=== PATIENT | female | born 1990 | race Caucasian/White ===

== ENCOUNTER 2017-01-06 10:46 | Inpatient (IN) | payer MEDICAID ==
[~2017-01-06] VITALS: Ht 152.4 cm; Wt 68.6 kg
[~2017-01-06 10:46] MED LIST: ACET500C5 PO; AMO500 PO; BEN25 PO; CALC600T5 PO; FERR159T PO; OXYTOCIN 30 UNITS/LR 500 ML BAG IV ONE; PREN-46 PO
[2017-01-06 10:59] VITALS: Ht 152.4 cm; Wt 68.6 kg
[2017-01-06] MEDS ORDERED: LACTATED RINGER'S 1,000 ML IV SCH (11:00)
[2017-01-06] MEDS ORDERED: OXYTOCIN 30 UNITS/LR 500 ML IV SCH (11:00)
[2017-01-06] MEDS ORDERED: MISOPROSTOL 200 MCG TAB PR PRN ×2 (11:00→18:00)
[2017-01-06] MEDS ORDERED: METHYLERGONOVINE 0.2 MG INJ IM PRN ×2 (11:00→18:00)
[2017-01-06] MEDS ORDERED: CARBOPROST 250 MCG INJ IM PRN ×2 (11:00→18:00)
[2017-01-06] MEDS ORDERED: OXYTOCIN 30 UNITS/LR 500 ML IV PRN ×2 (11:00→18:00)
[2017-01-06 11:14] VITALS: BP 102/62; PULSE 84; RESP 20
[2017-01-06 11:28] LABS: BASOPHILS % 0.3 % (0.0-2.0); EOSINOPHILS % 0.3 % (0.0-7.0); HEMATOCRIT 40.3 % (37.0-47.0); HEMOGLOBIN 13.8 g/dl (12.0-16.0); LYMPHOCYTES # 1.7 10^3/ul (0.8-2.9); LYMPHOCYTES % 20.3 % (15.0-51.0); MEAN CORPUSCULAR HEMOGLOBIN 31.3 pg (29.0-33.0); MEAN CORPUSCULAR HGB CONC 34.2 g/dl (32.0-37.0); MEAN CORPUSCULAR VOLUME 91.5 fl (82.0-101.0); MEAN PLATELET VOLUME 9.3 fl (7.4-10.4); MONOCYTE # 0.5 10^3/ul (0.3-0.9); MONOCYTES % 6.4 % (0.0-11.0); NEUTROPHIL # 6.2 10^3/ul (1.6-7.5); NEUTROPHILS % 72.7 % (39.0-77.0); PLATELET COUNT 150 10^3/UL (140-440); RED BLOOD COUNT 4.41 10^6/ul (4.20-5.40); UNCORRECTED WBC 8.5 10^3/ul (4.8-10.8); WHITE BLOOD COUNT 8.5 10^3/ul (4.8-10.8)
[2017-01-06] MEDS ORDERED: AMPICILLIN 2 GM/NS (PMX) 100 ML IVPB ONE (11:30)
[2017-01-06 11:33] LABS: CONDITION 1
[2017-01-06 11:43] LABS: INR 0.94; PROTIME 12.6 Sec (12.2-14.2)
[2017-01-06 11:44] LABS: PARTIAL THROMBOPLASTIN TIME 27.5 Sec (25.0-35.0)
[2017-01-06] MEDS ORDERED: FENTAnyl 50 MCG/ML VIAL ONE (12:53)
[2017-01-06] MEDS ORDERED: morphine SULFATE/PF (10 MG/10 ML) INJ ONE (12:53)
[2017-01-06] MEDS ORDERED: EPHEDrine SULFATE 50 MG/5 ML SYG ONE (12:58)
[2017-01-06] MEDS: CEFAZOLIN 2 GM/50 ML (PMX) 50 ML IVPB SCH ×3 (13:50→22:08)
--- NOTE | 2017-01-06 14:56 | HP ---
Date/Time of Note Date/Time of Note DATE: 01/06/17 TIME: 14:52 OB - History Hx of Present Free Text/Dictation admitted for repeat C/S at term Estimated Due Date: Jan 13, 2017 : 2 Para: 1 Care: Good Care Ultrasounds: Normal mid trimester US Obstetrical Complications: None Medical Complications: None, Other (+ GBS ) Past Family/Social History * Past Medical, Surgical, Family and Obstetric Histories reviewed from chart. Blood Type: A+ Rubella: immune RPR/VDRL: Negative GBS Status: Positive HBsAG: Negative OB Admission Exam Vital Signs Vital Signs Vital Signs Date Time Temp Pulse Resp B/P Pulse Ox O2 Delivery O2 Flow Rate FiO2 01/06/17 11:14 97.8 84 20 102/62 Room Air Physical Exam HEENT: WNL Heart: Rhythm Normal Lungs: Clear, Equal Abdomen: WNL Extremities: Normal Reflexes: Normal Cervical Dilatation: None Effacement: 0% Station: -3 Membranes: Intact Heart Rate: 140's Accelerations: Accelerations Present Decelerations: Early Decelerations Varibility: Moderate Contractions on Admission: None Last 72 hours Lab Results CBC & BMP 01/06/17 11:10 OB Assessment/Plan Other Assessment: term gestation previous C/S X 1 Other plan: repeat C/S RAMILA ORELLANA MD Jan 06, 2017 14:56
[2017-01-06] MEDS ORDERED: DIPHENHYDRAMINE 50 MG INJ IV PRN (15:00)
[2017-01-06] MEDS ORDERED: NALOXONE (0.4 MG/ML) INJ IV PRN (15:00)
[2017-01-06] MEDS ORDERED: HYDROmorphONE 1 MG/ML SYG IV PRN ×2 (15:00)
[2017-01-06] MEDS ORDERED: ONDANSETRON 4 MG INJ IV PRN (15:00)
[2017-01-06] MEDS ORDERED: ZOLPIDEM 5 MG TAB PO PRN (15:00)
--- NOTE | 2017-01-06 15:04 | OPR ---
Operative Report Planned Procedure Procedure date Jan 06, 2017 Procedure(s) repeat c/s Performed by: RAMILA ORELLANA MD Assisting provider: CHRIS RICO MD Anesthesiologist: LEYDI GAFFNEY Pre-procedure diagnosis term gestation previous C/S X 1 Anesthesia Type: spinal Procedure Description Under satisfactory anaesthesia a Pfannenstiel incision was made two fingerbreadth above and parallel to the symphysis of pubis around the previous scar and previous scar was removed Incision was extended laterally to the border of the Recti muscles on either sides. Incision was carried down with sharp and blunt dissection until fascia was reached. Anterior Recti muscle fascia was incised in mid portion and incision extended laterally to the border of skin incision. Fascia was mobilized from muscle superiorly and Recti muscles were from midline using sharp and blunt dissection. Peritoneum was visualized; Avoiding bowel and bladder it was incised . Incision was extended superiorly and inferiorly. Bladder blade was placed. Posterior peritoneum covering the lower segment of the uterus and lower segment of the uterus were incised.Low transverse uterine incision was made on lower segment of the uterus. Incision extended laterally to the border of Round Lig. on either sides and baby was delivered from OT. position . Amniotic fluid appeared clear. Cord blood was obtained and cord had 3 vessels . Placenta was delivered spontaneously and appeared intact and complete. Intrauterine cavity was rubbed with a laparotomy sponge. Uterine incision was closed in 2 layers using running stitches of No1 Monocryl. Hemostasis appeared secure. Ovaries and Fallopian tubes were within normal limits. Uterine adhesions to anterior abdominal wass was released Announcing needle, lap sponge and instrument count to be correct abdomen was closed in layers as follows: Peritoneum and Recti muscles with running stitches of 20 Vicryl. Fascia with running stitch of No 1 PDS. Subcutaneous tissue with running stitches of 20 Chromic and skin was closed using lynda. Patient tolerated the procedure well and was transferred to [facility] in good condition. Post-Procedure Post-procedure diagnosis S/P C/S Findings: Live Baby uterine adhesions to anterior abdominal wall : released Specimen removed: No Complications: None Pt Condition post procedure: stable Disposition: PACU Physician Certification I, the undersigned physician, hereby certify that I have discussed the procedure described in this consent form with this patient (or the patient's legal sales representative aircraft), including: * The risk and benefits of the procedure; * Any adverse reactions that may reasonably be expected to occur; * Any alternative efficacious methods of treatment which may be medically viable ; * The potential problems that may occur during recuperation; * Potential for blood transfusion and associated risks/benefits; and * Any research or economic interest I may have regarding this treatment. I further certify that the patient/legally responsible person was encouraged to ask question and that all questions were answered. RAMILA ORELLANA MD Jan 06, 2017 15:04
[2017-01-06] MEDS: KETOROLAC 30 MG INJ IV PRN ×2 (16:10→22:08)
[2017-01-06] MEDS: LACTATED RINGER'S 1,000 ML IV SCH ×2 (17:37→18:56)
[2017-01-06 17:45] VITALS: BP 94/50; PULSE 76; RESP 16
[2017-01-06] MEDS ORDERED: ACETAMINOPHEN/CODEINE #3 TAB PO PRN (18:00)
[2017-01-06] MEDS ORDERED: NA PHOSPHATE/BIPHOS 133 ML ENEMA PR PRN (18:00)
[2017-01-06] MEDS ORDERED: LANOLIN 7 GM TUBE TOP PRN (18:00)
[2017-01-06] MEDS: CLINDAMYCIN 300 MG CAP PO SCH (18:19)
[2017-01-06 19:40] VITALS: BP 107/60; PULSE 86; RESP 19
[2017-01-06] MEDS: SENNA/DOCUSATE NA (8.6MG/50MG) TAB PO SCH (22:08)
[2017-01-07] VITALS: BP 101/59; PULSE 81; RESP 18
[2017-01-07] MEDS: CLINDAMYCIN 300 MG CAP PO SCH ×4 (00:31→17:36)
[2017-01-07] MEDS: LACTATED RINGER'S 1,000 ML IV SCH ×2 (03:18→11:18)
[2017-01-07 04:00] VITALS: BP 109/57; PULSE 86; RESP 18
[2017-01-07] MEDS: CEFAZOLIN 2 GM/50 ML (PMX) 50 ML IVPB SCH ×2 (05:35→14:20)
[2017-01-07] MEDS: KETOROLAC 30 MG INJ IV PRN ×2 (05:35→11:48)
[2017-01-07 07:45] VITALS: BP 105/52; PULSE 95; RESP 18
[2017-01-07 08:32] LABS: BASOPHILS % 0.3 % (0.0-2.0); EOSINOPHILS % 0.1 % (0.0-7.0); HEMATOCRIT 33.8 % (37.0-47.0); HEMOGLOBIN 11.6 g/dl (12.0-16.0); LYMPHOCYTES # 1.2 10^3/ul (0.8-2.9); LYMPHOCYTES % 10.2 % (15.0-51.0); MEAN CORPUSCULAR HEMOGLOBIN 31.3 pg (29.0-33.0); MEAN CORPUSCULAR HGB CONC 34.5 g/dl (32.0-37.0); MEAN CORPUSCULAR VOLUME 90.8 fl (82.0-101.0); MONOCYTE # 0.5 10^3/ul (0.3-0.9); MONOCYTES % 4.3 % (0.0-11.0); NEUTROPHIL # 10.1 10^3/ul (1.6-7.5); NEUTROPHILS % 85.1 % (39.0-77.0); PLATELET COUNT 143 10^3/UL (140-440); RED BLOOD COUNT 3.72 10^6/ul (4.20-5.40); UNCORRECTED WBC 11.9 10^3/ul (4.8-10.8); WHITE BLOOD COUNT 11.9 10^3/ul (4.8-10.8)
[2017-01-07 08:38] LABS: CONDITION 1
[2017-01-07] MEDS ORDERED: BISACODYL 10 MG SUPP PR ONE (09:30)
[2017-01-07] MEDS: SENNA/DOCUSATE NA (8.6MG/50MG) TAB PO SCH ×2 (11:12→22:22)
[2017-01-07 11:48] VITALS: BP 110/56; PULSE 90; RESP 18
[2017-01-07] MEDS: IBUPROFEN 800 MG TAB PO SCH ×2 (14:20→22:22)
--- NOTE | 2017-01-07 14:26 | PN ---
Date/Time of Note Date/Time of Note DATE: 01/07/17 TIME: 14:24 Assessment/Plan VTE Prophylaxis VTE Prophylaxis Intervention: ambulation Lines/Catheters IV Catheter Type (from Nrs): Peripheral IV Assessment/Plan Assessment/Plan S/P C/S POD # 1 will advance diet Subjective 24 Hr Interval Summary NO BM passing flatus Exam/Review of Systems Vital Signs Vitals Vital Signs Date Time Temp Pulse Resp B/P Pulse Ox O2 Delivery O2 Flow Rate FiO2 01/07/17 12:00 97 21 01/07/17 11:48 98.0 90 18 110/56 01/07/17 07:45 Room Air Intake and Output 01/06/17 01/06/17 01/07/17 15:00 23:00 07:00 Intake Total 300 ml 550 ml 1425 ml Output Total 400 ml 900 ml 1400 ml Balance -100 ml -350 ml 25 ml Exam Free Text/Dictation VSS P?E: NL Abdomen: soft BS + Incision covered Results Result Diagram: 01/07/17 0645 RAMILA ORELLANA MD Jan 07, 2017 14:26
[2017-01-07 16:00] VITALS: BP 107/59; PULSE 98; RESP 19
[2017-01-07] MEDS: OXYCODONE/ACETAMINOPHEN (5/325) TAB PO PRN (17:37)
[2017-01-07 20:00] VITALS: BP 99/55; PULSE 86; RESP 20
[2017-01-08] MEDS: CLINDAMYCIN 300 MG CAP PO SCH ×4 (00:02→18:37)
[2017-01-08] MEDS: OXYCODONE/ACETAMINOPHEN (5/325) TAB PO PRN ×5 (00:54→20:53)
[2017-01-08 04:00] VITALS: BP 98/50; PULSE 76; RESP 18
[2017-01-08] MEDS: IBUPROFEN 800 MG TAB PO SCH ×3 (05:49→22:31)
[2017-01-08 07:23] LABS: BASOPHILS % 0.2 % (0.0-2.0); EOSINOPHILS % 0.7 % (0.0-7.0); HEMATOCRIT 33.5 % (37.0-47.0); HEMOGLOBIN 11.1 g/dl (12.0-16.0); LYMPHOCYTES # 1.5 10^3/ul (0.8-2.9); MEAN CORPUSCULAR HEMOGLOBIN 30.4 pg (29.0-33.0); MEAN CORPUSCULAR HGB CONC 33.1 g/dl (32.0-37.0); MEAN CORPUSCULAR VOLUME 91.8 fl (82.0-101.0); MEAN PLATELET VOLUME 11.2 fl (7.4-10.4); MONOCYTE # 0.6 10^3/ul (0.3-0.9); MONOCYTES % 5.8 % (0.0-11.0); NEUTROPHIL # 7.5 10^3/ul (1.6-7.5); PLATELET COUNT 167 10^3/UL (140-440); RED BLOOD COUNT 3.65 10^6/ul (4.20-5.40); RED CELL DISTRIBUTION WIDTH 12.8 % (11.5-14.5); WHITE BLOOD COUNT 9.7 10^3/ul (4.8-10.8)
[2017-01-08] MEDS: SENNA/DOCUSATE NA (8.6MG/50MG) TAB PO SCH ×2 (08:01→20:35)
[2017-01-08 08:02] LABS: EOSINOPHILS # 0.1 10^3/ul (0.0-0.5)
[2017-01-08 08:09] LABS: CONDITION 1
[2017-01-08 08:15] VITALS: BP 98/63; PULSE 62; RESP 18
[2017-01-08 16:25] VITALS: BP 94/59; PULSE 72; RESP 19
--- NOTE | 2017-01-08 18:34 | DS ---
Date/Time of Note Date/Time of Note home next day DATE: 01/08/17 TIME: 18:33 Obstetrical Discharge Record Final Diagnosis Final Diagnosis: Term delivered Other Final Diagnosis S/P repeat C/S Section Section: Repeat Condition on Discharge Physical Assessment Last Vitals: see nurses notes Voiding: Yes Bowel Movement: Yes Breast: Soft, non-tender, Filling Fundus: Firm Abdomen and Incision: soft BS + incision: healing well Episiotomy: NA Calf Tenderness: No Patient Condition: Good RAMILA ORELLANA MD Jan 08, 2017 18:34
--- NOTE | 2017-01-08 18:36 | DS ---
Date/Time of Note Date/Time of Note home next day DATE: 01/08/17 TIME: 18:34 Discharge Summary Admission/Discharge Info Admit Date/Time Jan 06, 2017 at 10:46 Discharge Date/Time 01/09/2017 Final Diagnosis S/P repeat C/S Patient Condition: Good Procedures repeat C/S Hx of Present Illness 26 y/o female had repeat C/S at term Hospital Course uncomplicated Home Meds Active Scripts Acetaminophen* (Tylophen*) 500 Mg Capsule, 1 CAP PO Q6H Y for PAIN AND OR ELEVATED TEMP, #20 CAP Prov:SANTO GARCIA MAIN GALLEY SCULLION 08/21/16 Diphenhydramine Hcl* (Benadryl*) 25 Mg Cap, 25 MG PO QHS, #30 CAP Prov:SANTO GARCIA MAIN GALLEY SCULLION 08/21/16 Amoxicillin* (Amoxicillin*) 500 Mg Cap, 500 MG PO TID for 10 Days, CAP Prov:SANTO GARCIA MAIN GALLEY SCULLION 08/21/16 Reported Medications Calcium Carbonate (CALCIUM) 600 Mg Tablet, 600 MG PO DAILY 12/04/13 Ferrous Sulfate, Dried (Iron) 159 Mg Tablet.er, 159 MG PO DAILY 12/04/13 Vit #108/Iron/Fa ( ONE TABLET) 1 Each Tablet, 1 EACH PO DAILY 12/04/13 Follow-up Plan 3 days in clinic for staple removal Pending Labs Laboratory Tests Test 01/08/17 06:57 Basophils # 0.010^3/ul (0.0-0.1) Basophils % 0.2% (0.0-2.0) Eosinophils # 0.110^3/ul (0.0-0.5) Eosinophils % 0.7% (0.0-7.0) Hematocrit 33.5% (37.0-47.0) Hemoglobin 11.1g/dl (12.0-16.0) Lymphocytes # 1.510^3/ul (0.8-2.9) Lymphocytes % 15.0% (15.0-51.0) Mean Corpuscular Hemoglobin 30.4pg (29.0-33.0) Mean Corpuscular Hemoglobin Concent 33.1g/dl (32.0-37.0) Mean Corpuscular Volume 91.8fl (82.0-101.0) Mean Platelet Volume 11.2fl (7.4-10.4) Monocytes # 0.610^3/ul (0.3-0.9) Monocytes % 5.8% (0.0-11.0) Neutrophils # 7.510^3/ul (1.6-7.5) Neutrophils % 78.0% (39.0-77.0) Nucleated Red Blood Cells # 0.010^3/ul (0.0-0.0) Nucleated Red Blood Cells % 0.0/100WBC (0.0-0.0) Platelet Count 07849^3/UL (140-440) Red Blood Count 3.6510^6/ul (4.20-5.40) Red Cell Distribution Width 12.8% (11.5-14.5) White Blood Count 9.710^3/ul (4.8-10.8) RAMILA ORELLANA MD Jan 08, 2017 18:36
--- NOTE | 2017-01-08 18:37 | PD.PPDC ---
APPRAISER ART Discharge Instruction Provider Information Physician Information 26 y/o female had repeat C/S Diagnosis Final Diagnosis: S/p repeat C/S Condition Patient Condition: Good Diet Diet: Resume Regular Diet Activity/Restrictions Activity: March Shower Restrictions: No Exercising Nothing in the Vagina Return to Work or School: Mar 09, 2017 Wound/Drain Care Instructions Wound/Drain Care Instructions: Keep clean and dry Follow-up Follow-up with Physician: 3, Day/Days (in clinic for staple removal ) Return to clinic for PLUSH BRUSHER Instructions: Fever greater than 101 Chills OB Instructions: Breast Tenderness Depression Surgical Instructions: Incisional Drainage Incisional Redness RAMILA ORELLANA MD Jan 08, 2017 18:37
[2017-01-08] MEDS ORDERED: Oxycodone/Acetamin (5/325) PO (18:38)
[2017-01-08] MEDS ORDERED: IBUP800T25 PO (18:38)
[2017-01-08 20:30] VITALS: BP 102/58; PULSE 76; RESP 20
[2017-01-09] MEDS: CLINDAMYCIN 300 MG CAP PO SCH ×3 (00:31→11:29)
[2017-01-09] MEDS: OXYCODONE/ACETAMINOPHEN (5/325) TAB PO PRN ×3 (00:32→11:29)
[2017-01-09 04:15] VITALS: BP 99/66; PULSE 72; RESP 18
[2017-01-09] MEDS: IBUPROFEN 800 MG TAB PO SCH ×2 (05:35→14:03)
[2017-01-09 08:00] VITALS: BP 102/55; PULSE 81; RESP 18
[2017-01-09] MEDS ORDERED: MEASLES,MUMPS,RUBELLA VACCINE INJ SC* ONE (09:00)
[2017-01-09] MEDS: SENNA/DOCUSATE NA (8.6MG/50MG) TAB PO SCH (09:00)
[2017-01-09] MEDS ORDERED: DIPHTH/TET/ACEL PERTUSS (ADULT) 0.5 ML VIAL IM* ONE (09:00)
== END 2017-01-09 15:06 | disposition home or self-care (01) | DRG 766 ==
LOC: L-D 10:46 → PP1 18:04
PROVIDERS: ADMIT Obstetrics & Gynecology; ATTEND Obstetrics & Gynecology
PROC: 10D00Z1 Extraction of Products of Conception, Low, Open Approach (ICD-10-PCS; principal; 2017-01-06 12:30)
DX: O34.211 Maternal care for low transverse scar from previous cesarean delivery (principal); O99.824 Streptococcus B carrier state complicating childbirth; Z3A.40 40 weeks gestation of pregnancy; Z37.0 Single live birth
CPT/HCPCS: 85025; 85610; 85730; 86592; 86850; 86900; 86901; 87340; 90715; 94760; 99464; J0290; J0690; J1170; J1885; J2274; J2590; J3010; J7120

== ENCOUNTER 2017-04-24 18:36 | Emergency (ER) | payer MEDICAID, OTHER ==
[~2017-04-24] VITALS: Ht 160 cm; Wt 64.0 kg
[~2017-04-24 18:36] MED LIST changes: -ACET500C5 PO; -AMO500 PO; -BEN25 PO; +IBUP800T25 PO; -OXYTOCIN 30 UNITS/LR 500 ML BAG IV ONE; +Oxycodone/Acetamin (5/325) PO
[2017-04-24 18:40] VITALS: Ht 160 cm; Wt 64.0 kg
[2017-04-24] MEDS ORDERED: ACETAMINOPHEN 500 MG TAB PO STA (19:07)
[2017-04-24] MEDS ORDERED: SOD CHLORIDE 0.9% 1,000 ML IV ONE (19:30)
[2017-04-24 19:40] LABS: ADD SCAN DIFF NO
[2017-04-24 19:43] LABS: BASOPHILS % 0.5 % (0.0-2.0); EOSINOPHILS # 0.2 10^3/ul (0.0-0.5); EOSINOPHILS % 2.5 % (0.0-7.0); HEMATOCRIT 41.9 % (37.0-47.0); HEMOGLOBIN 14.2 g/dl (12.0-16.0); LYMPHOCYTES # 1.1 10^3/ul (0.8-2.9); LYMPHOCYTES % 16.8 % (15.0-51.0); MEAN CORPUSCULAR HEMOGLOBIN 29.7 pg (29.0-33.0); MEAN CORPUSCULAR HGB CONC 33.9 g/dl (32.0-37.0); MEAN CORPUSCULAR VOLUME 87.7 fl (82.0-101.0); MONOCYTE # 0.5 10^3/ul (0.3-0.9); MONOCYTES % 7.3 % (0.0-11.0); NEUTROPHIL # 4.7 10^3/ul (1.6-7.5); NEUTROPHILS % 72.7 % (39.0-77.0); PLATELET COUNT 174 10^3/UL (140-415); RED BLOOD COUNT 4.78 10^6/ul (4.20-5.40); RED CELL DISTRIBUTION WIDTH 11.8 % (11.5-14.5); WHITE BLOOD COUNT 6.4 10^3/ul (4.8-10.8)
[2017-04-24 20:01] LABS: CALCIUM 9.3 mg/dl (8.4-10.2); CREATININE 0.53 mg/dl (0.44-1.00)
--- NOTE | 2017-04-24 20:01 | RADRPT ---
PROCEDURE: XR Chest. CLINICAL INDICATION: Cough and fever. TECHNIQUE: Single frontal view. COMPARISON: None. FINDINGS: The lungs are clear. The heart size is normal. There is no pleural effusion. There is no pneumothorax. IMPRESSION: 1. Normal chest radiograph. RPTAT: QQ .Terry Dueñas MD, Date Time Electronically viewed and signed by .Terry Dueñas MD, on 04/24/2017 20:00 .R/
[2017-04-24] MEDS ORDERED: SODI30SP2 NS (21:03)
[2017-04-24] MEDS ORDERED: ACET500C5 PO (21:03)
[2017-04-24 21:55] VITALS: BP 115/65; PULSE 90; RESP 16; TEMP 98.1
--- NOTE | 2017-04-24 22:06 | ERD ---
ER Documentation Chief Complaint Date/Time DATE: 04/24/17 TIME: 22:03 Chief Complaint cough x 4 day, sore throat, right ear pain, body aches HPI Patient is a 26-year-old female who presents to the ED with body aches, cough, congestion, runny nose 4 days. She states that she went to her primary care yesterday and was given azithromycin. She started the dose yesterday but is not taking second dose today. She also has been taking Flonase and Robitussin- DM. She states that she had minimal improvement in her symptoms. She has not taken any Tylenol Motrin for her fevers. She denies neck pain or neck stiffness. She denies abdominal pain, nausea, vomiting or diarrhea. Denies leg pain or leg swelling. ROS All systems reviewed and are negative except as per history of present illness. Medications Home Meds Active Scripts Sodium Chloride (Saline Nasal Crowheart) 30 Ml Crowheart, 30 ML NS BID for 14 Days, SPRAY Prov:RISA PEARSON PA-C 04/24/17 Acetaminophen* (Tylophen*) 500 Mg Capsule, 1 CAP PO Q6H Y for PAIN AND OR ELEVATED TEMP, #20 CAP Prov:RISA PEARSON PA-C 04/24/17 [Oxycodone/Acetamin (5/325)] 1 TAB TAB No Conflict Check, 2 TAB PO Q4H Y for PAIN LEVEL 6-10, #30 0 Refills Prov:RAMILA ORELLANA MD 01/08/17 Ibuprofen* (Ibuprofen*) 800 Mg Tablet, 800 MG PO Q8, #20 TAB 0 Refills Prov:RAMILA ORELLANA MD 01/08/17 Reported Medications Calcium Carbonate (CALCIUM) 600 Mg Tablet, 600 MG PO DAILY 12/04/13 Ferrous Sulfate, Dried (Iron) 159 Mg Tablet.er, 159 MG PO DAILY 12/04/13 Vit #108/Iron/Fa ( ONE TABLET) 1 Each Tablet, 1 EACH PO DAILY 12/04/13 Allergies Allergies: Coded Allergies: No Known Allergy (Unverified , 08/21/16) PMhx/Soc History of Surgery: Yes () Anesthesia Reaction: No Hx Neurological Disorder: No Hx Respiratory Disorders: No Hx Cardiac Disorders: No Hx Psychiatric Problems: No Hx Miscellaneous Medical Probl: No Hx Alcohol Use: No Hx Substance Use: No Hx Tobacco Use: No Smoking Status: Never smoker FmHx Family History: No coronary disease, No diabetes, No other Physical Exam Vitals Vital Signs Date Time Temp Pulse Resp B/P Pulse Ox O2 Delivery O2 Flow Rate FiO2 04/24/17 21:55 98.1 90 16 115/65 96 Room Air 04/24/17 20:51 99.5 110 16 118/62 96 Room Air 04/24/17 18:40 102.1 121 20 119/72 100 Physical Exam GENERAL: Well-developed, well-nourished female. Appears in no acute distress. HEAD: Normocephalic, atraumatic. EYES: Pupils are equally reactive bilaterally. EOMs grossly intact. No conjunctival erythema. ENT: Moist mucous membranes. No uvula deviation. No kissing tonsils. No exudates. NECK: Supple. No lymphadenopathy or thyromegaly. No meningismus. negative kernig. negative brudinski. LUNG: Clear to auscultation bilaterally. No rhonchi, wheezing, rales or coarse breath sounds. HEART: Regular rate and rhythm. No murmurs, rubs or gallops. Extremities: Equal pulses bilaterally. No peripheral clubbing, cyanosis or edema. No unilateral leg swelling. NEUROLOGIC: Alert and oriented. Moving all four extremities. 5/5 strength in all extremities. Normal speech. Steady gait. SKIN: Normal color. Warm and dry. No rashes or lesions. Capillary refill < 2 seconds Result Diagram: 04/24/17191904/24/171919 Results 24 hrs Laboratory Tests Test 04/24/17 19:20 White Blood Count 6.410^3/ul Red Blood Count 4.7810^6/ul Hemoglobin 14.2g/dl Hematocrit 41.9% Mean Corpuscular Volume 87.7fl Mean Corpuscular Hemoglobin 29.7pg Mean Corpuscular Hemoglobin Concent 33.9g/dl Red Cell Distribution Width 11.8% Platelet Count 77204^3/UL Mean Platelet Volume 11.0fl Neutrophils % 72.7% Lymphocytes % 16.8% Monocytes % 7.3% Eosinophils % 2.5% Basophils % 0.5% Nucleated Red Blood Cells % 0.0/100WBC Neutrophils # 4.710^3/ul Lymphocytes # 1.110^3/ul Monocytes # 0.510^3/ul Eosinophils # 0.210^3/ul Basophils # 0.010^3/ul Nucleated Red Blood Cells # 0.010^3/ul Sodium Level 141mmol/L Potassium Level 4.0mmol/L Chloride Level 102mmol/L Carbon Dioxide Level 26mmol/L Anion Gap 17 Blood Urea Nitrogen 11mg/dl Creatinine 0.53mg/dl Glucose Level 95mg/dl Calcium Level 9.3mg/dl Current Medications Medications (Trade) Dose Ordered Sig/Angel Route PRN Reason Start Time Stop Time Status Last Admin Dose Admin Acetaminophen 1000 mg 1,000 mg ONCE STAT PO 04/24/17 19:07 04/24/17 19:09 DC 04/24/17 19:51 Sodium Chloride (NS) 1,000 ml @ 1,000 mls/hr Q1H ONCE IV 04/24/17 19:30 04/24/17 20:29 DC 04/24/17 19:50 Procedures/MDM ER COURSE: I kept the patient and/or family informed of laboratory and diagnostic imaging results throughout the emergency room course. IMAGING STUDIES [place] [address] Radiology Main Line: [phone] DIAGNOSTIC IMAGING REPORT Patient: AMY ESCOBEDO : 1990 Age: 26 Sex: F MR #: [id number] DOS: 04/24/17 1907 Ordering MD: RISA PEARSON PA-C Location: [facility] Room/Bed: PROCEDURE: XR Chest. CLINICAL INDICATION: Cough and fever. TECHNIQUE: Single frontal view. COMPARISON: None. FINDINGS: The lungs are clear. The heart size is normal. There is no pleural effusion. There is no pneumothorax. IMPRESSION: 1. Normal chest radiograph. RPTAT: QQ .Terry Dueñas MD, MD Date Time Electronically viewed and signed by .Terry Dueñas MD, MD on 04/24/2017 20:00 .R/ CC: RISA PEARSON PA-C medications Tylenol 1 g. Tolerated well with no adverse reaction per CBC showed no signs of severe infection or anemia. BMP does not show electrolyte dysfunction. MEDICAL DECISION MAKING: This is a 26-year-old female who presents with body aches, cough, congestion and fever. Vital signs were reviewed. Patient is not hypoxic. Initially patient had a temperature of 102.1 with a pulse of 121. After administration of fluids and Tylenol, temperature is down trending. At discharge patient's temperature was 98.1 with a pulse of 90. Patient was feeling improvement in her symptoms. Her x-rays of by radiologist unremarkable. At this point patient should continue taking the medication as prescribed. Low suspicion for pneumonia, PE, pneumothorax, ACS, epiglottitis, obstruction, TB, pertussis, meningitis, sepsis. Low suspicion for ACS, PE, AAA, dissection, DVT. Patient does not show signs of respiratory distress. Patient does not show signs of dehydration. DISCHARGE: At this time, patient is stable for discharge and outpatient management with no new complaints during the ER course. Patient was sent home with saline nasal spray, Tylenol and to continue the medication as prescribed by her primary care physician. All copies of imaging report and studies were given to patient.. Patient will be discharged home with instructions to recheck for new or worsening symptoms such as fever, nausea, weakness, LOC and to follow up with primary care in the next 1-2 days. Patient was advised to return to the ER for any new or worsening symptoms. Plan was discussed and patient and/or family understands and agrees. Home instructions were given. Departure Diagnosis: Primary Impression: URI, acute Condition: Stable Patient Instructions: Uri, Viral, No Abx (Adult) Additional Instructions: Call your primary care doctor TOMORROW for an appointment during the next 1-2 days.See the doctor sooner or return here if your condition worsens before your appointment time. RISA PEARSON PA-C April 24, 2017 22:06
== END 2017-04-24 21:56 | disposition home or self-care (01) ==
LOC: FTE 18:36
DX: J06.9 Acute upper respiratory infection, unspecified (principal)
CPT/HCPCS: 71010; 80048; 85025; J7030; Z7502; Z7610